=== PATIENT | female | born 1940 | race Caucasian/White ===

== ENCOUNTER 2018-04-03 11:31 | Observation (INO) ==
--- NOTE | 2018-04-03 09:09 | MH ---
cc: Rex Paredes MD DATE OF ADMISSION: 04/03/2018 DIAGNOSIS: End-stage osteoarthritis, left knee. Proposed surgery, total knee replacement arthroplasty, left knee. PAST MEDICAL HISTORY: She has a history of arthritis and skin cancer. She has type 2 diabetes and back pain. PAST SURGICAL HISTORY: Fracture right femur in 1957, total hip arthroplasty in 2004. She says her right leg is shorter than the left because of the hip replacement. She says that it has never been right. PRESENT MEDICATION HISTORY: She is on various vitamins and supplements. For diabetes, she is on Janumet. For blood pressure, she is on losartan. She takes rosuvastatin and Synthroid. PRESENT HISTORY: The patient has had a problem with this knee for many, many years, but she tripped on a rug and fell in 2016. She also fell in November 2017 with increasing pain in the knee. She was sent for an MRI scan by her primary care physician, which showed that she may have a healing nondisplaced tibial plateau fracture. She also has severe tricompartmental osteoarthritis with possible loose bodies. There is severe involvement of the patellofemoral joint. The patient did not want any palliative measures because she has had them before in the past and she wants a definitive procedure to relieve her symptoms of pain and instability. The patient is now brought in after preoperative workup and cardiac clearance. The procedure itself and the potential risks, hazards, complications, expected results of pain management postop course, have all been discussed. Informed consent obtained. Details of informed consent documented on the office record. PHYSICAL EXAMINATION: GENERAL: Tall white female who uses a supportive device to ambulate. EXTREMITIES: Left knee with obvious swelling and some effusion, no warmth or redness. She has pain past 90 degrees of flexion. Extension is full. No instability. Pedal pulses are palpable. She moves the toes well. SKIN: Good. HEENT: Head is normocephalic. Pupils reactive to light. CHEST: Symmetrical. HEART: Regular rate and rhythm. No murmurs. LUNGS: Clear to auscultation. ABDOMEN: Soft and plan. Rex Paredes MD SS/ct , 08:19 AM , 08:27 AM
[~2018-04-03 11:31] MED LIST: Propofol Inj 500 MG/50 ML Vial ONE
[2018-04-03] MEDS ORDERED: Chlorhexidine Gluconate 2% 1 Pack (2 Cloths) TOPICAL ONE (12:47)
[2018-04-03] MEDS ORDERED: Metoprolol Tartrate 25 MG Tablet PO ONE (12:47)
[2018-04-03] MEDS ORDERED: BUPIVACAINE LIPOSOMAL P-ARTICULR SCH ×2 (13:00)
[2018-04-03] MEDS ORDERED: SODIUM CHLORIDE 0.9% P-ARTICULR SCH ×2 (13:00)
[2018-04-03] MEDS ORDERED: SODIUM CHLOR 0.9% IV.SIG SCH ×2 (13:00→15:50)
[2018-04-03] MEDS ORDERED: Sodium Chlor 0.9% Inj 500 ML IV.SIG SCH (13:00)
[2018-04-03] MEDS ORDERED: Clindamycin 900 mg/NS Premix 900 MG/50 ML PIGGYBACK IV.SIG SCH ×2 (13:00)
[2018-04-03] MEDS ORDERED: TRANEXAMIC ACID IV.SIG SCH ×2 (13:00→15:50)
[2018-04-03] MEDS ORDERED: Sodium Chlor 0.9% Inj 10 ML ONE (13:02)
[2018-04-03] MEDS: Vancomycin Inj 1,000 MG in Sodium Chlor 0.9% Inj 250 ML IV.SIG SCH (13:21)
[2018-04-03] MEDS ORDERED: Neostigmine Inj 5 MG/5 ML Syringe IV.PUSH ONE (13:39)
[2018-04-03] MEDS ORDERED: Glycopyrrolate Inj 1 MG/5 ML Syringe IV.PUSH ONE (13:39)
[2018-04-03] MEDS ORDERED: Aluminum/Magnesium/Simethacone Susp 30 ML UDC PO PRN (15:52)
[2018-04-03] MEDS ORDERED: Bisacodyl 10 MG Supp RECTAL PRN (15:52)
[2018-04-03] MEDS ORDERED: Post-op Orders (for Pharmacy) OTHER STA (15:52)
--- NOTE | 2018-04-03 16:18 | P.DCO ---
- Physical Therapy Knee: Total knee, Protocol: Right Right Lower Extremity Weight Bearing: Weight bearing as tolerated Right Lower Extremity Range of Motion: Active assistive ROM - Nursing Nursing: Other (check incision alternate days. Leave dressing dry and intact. call MD herman) Dressing changes: Other (see above) - Certification Need for Home Health services: I have seen patient Shayna Singh on 04/03/18. My clinical findings support the need for the requested home health care services because: Need for Home Health Services: Limited ability to care for self Homebound Certification: I certify that my clinical findings support that this patient is homebound because: Homebound Certification: Unable to use public transportation
[2018-04-03] MEDS ORDERED: Dextrose 50% in Water 50 ML Vial IV.PUSH PRN (16:19)
[2018-04-03] MEDS ORDERED: fentaNYL Citrate Inj 100 MCG/2 ML Ampul ONE (16:26)
[2018-04-03] MEDS ORDERED: *morphine SULFATE 4 MG/ML PERIprocedure ONLY ONE ×2 (16:36→17:10)
[2018-04-03] MEDS: Sod Chloride 0.9% Inj 1,000 ML IV.CONT SCH (16:44)
--- NOTE | 2018-04-03 16:45 | XR ---
EXAM DATE: 04/03/2018 4:40 PM EDT AGE/SEX: 78 years / Female INDICATIONS: Status post total left knee arthroplasty. CLINICAL DATA: This is the patient's subsequent encounter. Patient reports that signs and symptoms h ave been present for 1 day and indicates a pain score of Nonresponsive. MEDICAL/SURGICAL HISTORY: Non-responsive. Non-responsive. COMPARISON: TLI, MR KNEE W/O CONTRAST, LEFT, 02/26/2018. . FINDINGS: 2 views of the knee demonstrate a surgical drain anteriorly, a total knee arthroplasty in place with no fracture or dislocation. Tibial and femoral components appear well seated. There is subcutaneous a ir as expected. CONCLUSION: Left total knee arthroplasty. Electronically signed by: Vance Melo MD 04/03/2018 4:43 PM EDT
--- NOTE | 2018-04-03 16:58 | MP ---
cc: Rex Paredes MD DATE OF OPERATION: 04/03/2018 DATE OF OPERATION: 04/03/2018 PREOPERATIVE DIAGNOSIS: Osteoarthritis, left knee. POSTOPERATIVE DIAGNOSIS: Osteoarthritis, left knee. OPERATIVE PROCEDURE: Total knee replacement arthroplasty, left knee using, Biomet-Vanguard cemented components. The components were as follows: Femur 65 mm left, patella small single peg polyethylene, tibia 71 mm I-beam stem, poly 12 . SURGEON: Rex Paredes MD ANESTHESIA: General. TECHNIQUE: After induction of general anesthesia, left lower extremity was sterilely prepped with alcohol and ChloraPrep and draped in routine fashion. After application of Esmarch bandage, tourniquet was inflated. The knee was flexed to just past about 90 degrees. Care was therefore taken to make sure we protected the patellar tendon throughout the procedure. A midline incision was made and deepened through the subcutaneous tissue and the knee was opened up. There was tremendous amount of chronic synovitis and loose bodies and huge spurs from the superior pole of the patella. These were all excised. Debridement was carried out. Anterior joint debridement was carried out. A limited elevation of soft tissue was carried out from the medial tibial border, excising osteophytes. The femoral canal opened anterior to the posterior cruciate ligament. The distal femoral cutting guide, set at 5 degrees, was used to do the distal femoral cuts. Immediately apparent was the horrible status of her trabecular bone and therefore great care was taken to be gentle with the bone and soft tissues. A proximal tibial cut was made, referencing 6 mm from the lower most portion of the medial tibial plateau. Additional 2 mm of bone was taken off later and to also get some posterior inclination. The patella was repaired following routine technique. Trial implants were placed and position, alignment, and stability are all good. Femoral canal plugged with bone. A diluted Exparel solution was injected periarticularly. Bony surface was thoroughly lavaged and using 2 units of Biomet cement with gentamicin in it, the tibial implant cemented first. All excess cement removed, followed by the femoral implant and then the patellar implant and the knee extended with a 12 mm flat polyethylene. Once the cement solidified, knee was examined. A 12 mm spacer was used which makes everything looked good, in terms of flexion, extension, and stability. Patella tracks nicely. The wound was irrigated with saline solution, followed by the introduction of the 12 mm insert and clip. Hemovac drain left in the suprapatellar pouch. The knee was closed in mid flexion with interrupted #2 Vicryl sutures in the superior medial corner of the patella and then running #2 Quill. Subcutaneous tissue closed with 2-0 Vicryl and 3-0 subcuticular sutures and Steri-Strips with Dermabond. Dressings applied with 4 x 4's, ABD, Sof-Rol and ice bladder, and Amilcar bandage. The patient was transferred to the recovery room in satisfactory condition. The patient tolerated the procedure well. COMPLICATIONS: None. POSTOPERATIVE CONDITION: Satisfactory. PROGNOSIS: Good. MD GHANSHYAM Manzanares/lisa , 04:33 PM , 04:42 PM
[2018-04-03] MEDS: Insulin NovoLOG Aspart Correctional Sugar Inj SQ SCH (18:23)
[2018-04-03] MEDS: Montelukast 10 MG Tablet PO SCH (18:31)
[2018-04-03] MEDS: Senna/Docusate Sodium 8.6/50 MG Tablet PO SCH (20:13)
[2018-04-03] MEDS ORDERED: Non-Formulary Drug (Sitagliptin-Metformin [Janumet] 1 TAB) PO SCH (21:00)
[2018-04-03] MEDS: Clindamycin 900 mg/NS Premix 900 MG/50 ML PIGGYBACK IV.SIG SCH (21:05)
[2018-04-04] MEDS: Insulin NovoLOG Aspart Correctional Sugar Inj SQ SCH ×5 (00:20→23:28)
[2018-04-04] MEDS ORDERED: Vancomycin Inj 1 GM/200 ML PIGGYBACK IV.SIG SCH (01:00)
[2018-04-04] MEDS: Vancomycin Inj 1,000 MG in Sodium Chlor 0.9% Inj 250 ML IV.SIG SCH ×5 (01:10→14:29)
[2018-04-04] MEDS: Levothyroxine 50 MCG Tablet PO SCH (05:54)
[2018-04-04] MEDS: Clindamycin 900 mg/NS Premix 900 MG/50 ML PIGGYBACK IV.SIG SCH ×2 (05:54→12:00)
[2018-04-04 06:01] LABS: Hematocrit 28.9 % (35.0-46.0); Hemoglobin 10.1 gm/dL (11.6-15.3)
--- NOTE | 2018-04-04 07:52 | P.PNOP ---
Subjective Interval history: The leg weighs a ton Physical Exam Vital signs: Vital Signs 04/03/18 12:40 04/03/18 16:15 04/03/18 16:30 Temperature 98 F 96.3 F L Pulse Rate 81 80 74 Respiratory Rate 18 16 13 Blood Pressure 157/72 H 159/76 H 160/78 H Pulse Oximetry 100 100 100 04/03/18 16:45 04/03/18 17:00 04/03/18 17:15 Temperature Pulse Rate 74 75 76 Respiratory Rate 14 12 19 Blood Pressure 158/81 H 165/77 H 165/80 H Pulse Oximetry 100 100 100 04/03/18 17:42 04/03/18 19:01 04/03/18 20:00 Temperature 97 F L 97.4 F L Pulse Rate 73 78 Respiratory Rate 24 18 16 Blood Pressure 155/70 H 167/75 H Pulse Oximetry 98 99 04/04/18 00:00 04/04/18 01:39 04/04/18 03:00 Temperature 97.7 F Pulse Rate 88 Respiratory Rate 17 17 17 Blood Pressure 144/66 H Pulse Oximetry 98 04/04/18 04:00 Temperature 98.1 F Pulse Rate 94 H Respiratory Rate 17 Blood Pressure 138/69 Pulse Oximetry 98 Intake & Output 04/03/18 04/04/18 04/04/18 18:59 06:59 18:59 Intake Total 1451.35 / 1451.35 50 / 50 Output Total 100 / 100 130 / 130 Balance 1351.35 / 1351.35 -80 / -80 Weight 63.5 kg Intake: IV 1421.35 / 1421.35 50 / 50 NS Inj 1,000 ML @ 100 mls/hr IV 15 / 15 .CONT .Q10H THAI Rx#:[id number] Cleocin 900 mg/NS Premix 900 mg 50 / 50 50 / 50 In 50 ml @ 100 mls/hr IV.SIG Q8H THAI Rx#:[id number] LR 1000 mL Inj 1,000 ML @ 30 1000 / 1000 mls/hr IV.SIG .Q24H THAI Rx#: [id number] Cyklokapron Inj 635 MG In NS 106.35 / 106.35 Inj 100 ML @ 200 mls/hr IV.SIG ONCE THAI Rx#:[id number] Vancomycin Inj 1,000 MG In NS 250 / 250 Inj 250 ML @ 250 mls/hr IV.SIG PNEUMATIC TESTER MECHANIC THAI Rx#:[id number] Oral 30 Output: Estimated Blood Loss 100 / 100 Wound Drainage 130 / 130 # 1 Left Knee Hemovac 130 / 130 Other: # Voids 2 Date of Last Bowel Movement 04/03/18 04/03/18 Weight On Admission 63.5 kg Narrative: She is sitting out of bed. She is awake alert and oriented. Bandages are intact. She moves her toes well. Pedal pulses are palpable. Patient advised to keep the knee flexed as much as possible when out of bed. She is able to actively extend the leg. Results - Labs CBC & Chem 7: 04/04/18 05:12 Laboratory Results - last 24 hr 04/03/18 04/03/18 04/03/18 12:23 16:40 18:03 Hgb Hct POC Glucose 117 H 128 H Blood Type A Positive Antibody Screen Negative 04/04/18 04/04/18 04/04/18 00:20 05:12 05:54 Hgb 10.1 L Hct 28.9 L POC Glucose 158 H 137 H Blood Type Antibody Screen - Imaging Impressions Knee X-Ray 04/03/18 00:00 CONCLUSION: Left total knee arthroplasty. Assessment and Plan - Ortho Post Op Day # 1 - Assessment and Plan Patient is doing well postop. Plan is to discharge her home with home health care tomorrow.
[2018-04-04] MEDS: Senna/Docusate Sodium 8.6/50 MG Tablet PO SCH ×2 (08:22→20:53)
[2018-04-04] MEDS ORDERED: BACILLUS COAGULANS INULIN PO SCH (09:00)
[2018-04-04] MEDS: Sod Chloride 0.9% Inj 1,000 ML IV.CONT SCH ×2 (11:34→14:12)
[2018-04-04] MEDS: Morphine Inj 4 MG/ML Vial IV.PUSH PRN ×2 (11:50→16:54)
[2018-04-04] MEDS ORDERED: Rivaroxaban 10 MG Tablet PO SCH (15:00)
[2018-04-04] MEDS: Montelukast 10 MG Tablet PO SCH (17:06)
[2018-04-04 17:11] LABS: Hematocrit 31.6 % (35.0-46.0); Hemoglobin 10.7 gm/dL (11.6-15.3)
[2018-04-04 17:34] LABS: Anion Gap 11 meq/L (5-15); Blood Urea Nitrogen 6 mg/dL (7-18); Calcium 8.1 mg/dL (8.5-10.1); Carbon Dioxide 23.6 meq/L (21.0-32.0); Chloride 98 meq/L (98-107); Glomerular Filtration Rate Greater Than 89 mL/min (>89); Glucose,Random 130 mg/dL (74-106); Sodium 133 meq/L (136-145)
[2018-04-05] MEDS: Sod Chloride 0.9% Inj 1,000 ML IV.CONT SCH ×2 (02:54→10:22)
[2018-04-05] MEDS: Levothyroxine 50 MCG Tablet PO SCH (05:58)
[2018-04-05] MEDS: Insulin NovoLOG Aspart Correctional Sugar Inj SQ SCH ×2 (05:59→11:33)
[2018-04-05] MEDS: Senna/Docusate Sodium 8.6/50 MG Tablet PO SCH (08:56)
--- NOTE | 2018-04-05 10:17 | P.PNOP ---
Subjective Interval history: Complaints of pain left knee. Wonders if she could go to long term. She is sitting out of bed. Knees flexed to 80. There is mild to moderate degree of swelling. Dressings are dry. She moves her toes well Physical Exam Vital signs: Vital Signs 04/04/18 11:52 04/04/18 16:00 04/04/18 16:56 Temperature 98.4 F Pulse Rate 91 H Respiratory Rate 18 17 18 Blood Pressure 171/74 H Pulse Oximetry 96 04/04/18 20:00 04/04/18 21:23 04/04/18 22:00 Temperature 99.4 F Pulse Rate 91 H Respiratory Rate 18 17 17 Blood Pressure 154/66 H Pulse Oximetry 98 04/05/18 00:00 04/05/18 02:00 04/05/18 08:00 Temperature 99.5 F 97.8 F Pulse Rate 98 H 93 H Respiratory Rate 20 17 17 Blood Pressure 160/75 H 166/74 H Pulse Oximetry 97 98 Intake & Output 04/04/18 04/05/18 04/05/18 18:59 06:59 18:59 Intake Total 2560 / 2560 720 / 720 Balance 2560 / 2560 720 / 720 Intake: IV 1600 / 1600 NS Inj 1,000 ML @ 100 mls/hr IV 1000 / 1000 .CONT .Q10H THAI Rx#:[id number] Cleocin 900 mg/NS Premix 900 mg 100 / 100 In 50 ml @ 100 mls/hr IV.SIG Q8H THAI Rx#:[id number] Vancomycin Inj 1,000 MG In NS 500 / 500 Inj 250 ML @ 200 mls/hr IV.SIG Q12H THAI Rx#:[id number] Oral 960 / 960 720 / 720 Other: # Voids 4 2 Date of Last Bowel Movement 04/03/18 04/03/18 Narrative: As mentioned above. Patient appears somewhat depressed. Results - Labs CBC & Chem 7: 04/04/18 16:55 04/04/18 16:55 Laboratory Results - last 24 hr 04/04/18 04/04/18 04/04/18 16:55 16:55 23:28 Hgb 10.7 L Hct 31.6 L Sodium 133 L Potassium 4.0 Chloride 98 Carbon Dioxide 23.6 Anion Gap 11 BUN 6 L Creatinine 0.56 Estimated GFR Greater than 89 POC Glucose 162 H Random Glucose 130 H Calcium 8.1 L 04/05/18 05:57 Hgb Hct Sodium Potassium Chloride Carbon Dioxide Anion Gap BUN Creatinine Estimated GFR POC Glucose 167 H Random Glucose Calcium Assessment and Plan - Ortho Post Op Day # 2 - Assessment and Plan 2 days post total knee replacement left knee. Patient appears somewhat depressed. From reviewing the chart it appears that she is probably not a candidate for alf facility but rather for home health care. Her situation discussed with her nurse. Nurse feels that her pain is not controlled adequately. I will write a discharge order for this afternoon but if need be we will keep her here overnight until tomorrow morning.
[2018-04-05 10:23] VITALS: RESP 18
[2018-04-05 12:05] VITALS: BP 119/58; PULSE 88; TEMP 98; O2SAT 97
--- NOTE | 2018-04-06 23:55 | MD ---
cc: Rex Paredes MD DATE OF DISCHARGE: 04/05/2018 ADMISSION DIAGNOSIS: End-stage osteoarthritis, left knee. DISCHARGE DIAGNOSIS: End-stage osteoarthritis, left knee. HISTORY OF PRESENT ILLNESS: History consisted of with many, many years history of pain in the knee, treated with arthroscopic surgery and steroid injections and medications, etc. The patient has sudden increase in pain about 3 months ago after a fall with the need to use a walker and MRI revealed severe osteoarthritis with underlying stress fracture of the lateral tibial plateau. The patient has significant symptoms interfering with activities of daily living and inability to walk without a walker and therefore she had appropriate preoperative workup and brought to the hospital for surgical procedure that was done on 04/03/2018, a total knee replacement arthroplasty with Biomet-Vanguard components. HOSPITAL COURSE: Postoperative course essentially uneventful. Standard pain management protocol including adductor block, periarticular injections and intravenous Tylenol, etc., were all used to successfully. The patient appears somewhat depressed and expressing concerns about going home. I talked to her and told her that the home healthcare situation is the best situation for her with family around her, and able-bodied to watch over her and physical therapy and nursing to also follow her up. I did not feel that it was necessary to go to a [place] health care facility. DISCHARGE MEDICATIONS: Hydrocodone 5, two tablets q.i.d. p.r.n. for pain #56 and Xarelto 10 mg daily #14 for prophylactic anticoagulation. She is also advised to use ice on it. Use a walker and walk as much as she can. She has an appointment to see me on 04/15/2018 for followup. MD GHANSHYAM Manzanares/kristie , 09:54 AM , 10:01 AM
== END 2018-04-05 14:22 | disposition home health service (06) ==
LOC: HSDC 11:31 → N06 11:31 → EDSTATUS 14:00
PROVIDERS: ADMIT Orthopaedic Surgery; ATTEND Orthopaedic Surgery